=== PATIENT | male | born 1960 | race Two or more races ===

== ENCOUNTER 2021-01-29 08:03 | Day surgery (SDC) | payer OTHER ==
[~2021-01-29] VITALS: Ht 177.8 cm; Wt 117.9 kg
[2021-01-29] MEDS ORDERED: SODIUM CHLORIDE LOCK 10 ML ONE (08:36)
[2021-01-29] MEDS ORDERED: LIDOCAINE VISCOUS 2% 15ML UD ONE (08:37)
[2021-01-29 10:00] LABS: Basophils # (auto) 0 10 ^3/uL (0-0.2); Basophils % (auto) 0.8 % (0.0-2.0); Eosinophils # (auto) 0.1 10 ^3/uL (0-0.8); Eosinophils % (auto) 2.2 % (0.0-7.0); Hematocrit 44.9 % (41.0-53.0); Hemoglobin 15.7 g/dL (13.5-17.5); Lymphocytes # (auto) 1.1 10 ^3/uL (0.4-5.4); Lymphocytes % (auto) 22.1 % (10.0-50.0); Mean Corpuscular Hemoglobin 30.6 pg (28.0-32.0); Mean Corpuscular Volume 87.6 fL (80.0-100.0); Monocytes # (auto) 0.5 10 ^3/uL (0-1.3); Monocytes % (auto) 10.1 % (0.0-12.0); Neutrophils # (auto) 3.2 10 ^3/uL (1.6-8.6); Neutrophils % (auto) 64.8 % (37.0-80.0); Nucleated Red Blood Cells % 0.2 %; Red Blood Cells 5.13 10^6/uL (4.5-5.90); Red Cell Distribution Width 13.6 % (11.8-14.3)
[2021-01-29 10:22] LABS: INR 1.09 (0.9-1.15); Partial Thromboplastin Time 30.1 sec (23.0-31.2)
[2021-01-29] MEDS: MIDAZOLAM HCL 5 MG/ML-1ML VIAL ONE ×4 (12:26→12:44)
[2021-01-29] MEDS: diphenhdrAMINE HCL 50 MG/1 ML VL ONE ×2 (12:26→12:29)
[2021-01-29] MEDS: fentaNYL CITRATE 100 MCG/2 ML VL ONE ×3 (12:26→12:41)
[2021-01-29] MEDS ORDERED: ONDANSETRON HCL 4 MG/2 ML VIAL ONE (13:22)
[2021-01-29 13:30] VITALS: BP 114/79
[2021-01-29] MEDS ORDERED: ONDANSETRON HCL 4 MG/2 ML VIAL IM ONE (13:30)
== END 2021-01-29 13:40 | disposition home or self-care (01) ==
LOC: GI 08:03
PROVIDERS: ATTEND Internal Medicine Gastroenterology
DX: Z12.11 Encounter for screening for malignant neoplasm of colon (principal); K29.50 Unspecified chronic gastritis without bleeding; K31.89 Other diseases of stomach and duodenum; K29.80 Duodenitis without bleeding; K63.89 Other specified diseases of intestine; K44.9 Diaphragmatic hernia without obstruction or gangrene; E66.9 Obesity, unspecified; Z68.37 Body mass index [BMI] 37.0-37.9, adult; K25.9 Gastric ulcer, unspecified as acute or chronic, without hemorrhage or perforation
CPT/HCPCS: 36415; 43239; 45380; 85025; 85049; 85610; 85730; 88305; 88342; J1200; J2250; J2405; J3010; J7030; 99152; 99153